=== PATIENT | male | born 1975 | race Caucasian/White ===

== ENCOUNTER 2020-07-19 14:17 | Emergency (ER) | payer OTHER ==
[~2020-07-19] VITALS: Ht 180.3 cm; Wt 97.5 kg
[2020-07-19] MEDS ORDERED: NORCO 5-325 TA1 EAC2 PO (16:54)
[2020-07-19 17:05] VITALS: BP 115/70
== END 2020-07-19 17:06 | disposition home or self-care (01) ==
LOC: M.ERS 14:17
DX: S43.014A Anterior dislocation of right humerus, initial encounter (principal); X50.9XXA Other and unspecified overexertion or strenuous movements or postures, initial encounter; Y93.64 Activity, baseball; Y92.89 Other specified places as the place of occurrence of the external cause; Y99.8 Other external cause status

== ENCOUNTER 2020-08-07 12:43 | Emergency (ER) | payer OTHER ==
[~2020-08-07] VITALS: Ht 177.8 cm; Wt 96.2 kg
[~2020-08-07 12:43] MED LIST: NORCO 5-325 TA1 EAC2 PO
[2020-08-07 14:36] VITALS: BP 132/70
== END 2020-08-07 14:37 | disposition home or self-care (01) ==
LOC: M.ERS 12:43
DX: S43.084A Other dislocation of right shoulder joint, initial encounter (principal); X58.XXXA Exposure to other specified factors, initial encounter; Y93.89 Activity, other specified; Y92.89 Other specified places as the place of occurrence of the external cause; Y99.8 Other external cause status

== ENCOUNTER → 2020-09-04 | Outpatient (CLI) | payer OTHER | LOC: M.LAB 07:48 | PROVIDERS: ATTEND Orthopaedic Surgery | DX: Z01.812 Encounter for preprocedural laboratory examination (principal); Z20.822 Contact with and (suspected) exposure to COVID-19; S43.014D Anterior dislocation of right humerus, subsequent encounter; X58.XXXD Exposure to other specified factors, subsequent encounter ==